=== PATIENT | female | born 1960 | race American Indian/Alaskan Native ===

== ENCOUNTER 2021-06-16 17:13 | Emergency (ER) | payer SELFPAY ==
[2021-06-16] MEDS ORDERED: ALBUTEROL 2.5 MG/3 ML NEBU IH ONE ×5 (17:21→21:05)
--- NOTE | 2021-06-16 17:38 | Event Note ---
ED Screening Note Date of service: 06/16/21 Time: 17:37 ED Screening Note: Patient complains of sudden onset of shortness of breath History of asthma Patient is significantly short of breath with cough States she did receive a Covid vaccine This initial assessment/diagnostic orders/clinical plan/treatment(s) is/are subject to change based on patients health status, clinical progression and re- assessment by fellow clinical providers in the ED. Further treatment and workup at subsequent clinical providers discretion. Patient/guardian urged not to elope from the ED as their condition may be serious if not clinically assessed and managed. Initial orders include: Informed triage nurse to place vitals in chart Triage nurse also ordered albuterol treatment Chest x-ray and labs given severity of shortness of breath
[2021-06-16 19:17] LABS: Hematocrit 42.4 % (30.3-42.9); Hemoglobin 13.9 gm/dl (10.1-14.3); Mean Corpuscular HGB Conc 33 % (30-34); Mean Corpuscular Volume 93 fl (79-97); Platelet Count 209 K/mm3 (140-440); Red Blood Count 4.55 M/mm3 (3.65-5.03)
[2021-06-16 19:22] LABS: Albumin 4.6 g/dL (3.9-5); Calcium 9.6 mg/dL (8.4-10.2)
--- NOTE | 2021-06-16 19:51 | XRay Report ---
CHEST 2 VIEWS INDICATION / CLINICAL INFORMATION: shortness of breath. COMPARISON: None available. FINDINGS: SUPPORT DEVICES: None. HEART / MEDIASTINUM: No significant abnormality. LUNGS / PLEURA: The lungs are mildly hyperinflated. No acute pulmonary or pleural disease noted, kat bryon. No pneumothorax. ADDITIONAL FINDINGS: No significant additional findings. IMPRESSION: 1. Mild hyperinflation of the lungs. No acute pulmonary process noted. Signer Name: Lizzie Pressley MD Signed: 06/16/2021 7:47 PM Workstation Name: [id number]
[2021-06-16] MEDS ORDERED: IPRATROPIUM 0.02% NEBU 2.5 ML IH ONE ×2 (21:03→21:05)
[2021-06-16] MEDS ORDERED: predniSONE 20 MG TAB PO ONE (21:12)
[2021-06-16 21:17] LABS: Giant Platelets Rare; RBC Morphology Normal; Total Cells Counted 100
[2021-06-16] MEDS ORDERED: diphenhydrAMINE 50 MG/ML VIAL IV STA (21:51)
--- NOTE | 2021-06-16 22:37 | Emergency Department Report ---
ED Asthma HPI - General Chief Complaint: Adult Asthma Stated Complaint: ASTHMA Time Seen by Provider: 06/16/21 17:38 Source: patient Mode of arrival: Ambulatory Limitations: No Limitations - History of Present Illness Initial Comments: The exacerbation of asthma of unknown etiology. She is unsure of contact with the coronavirus no diarrhea no hemoptysis no hematemesis hematochezia, no fever, chills, sweats. MD Complaint: "asthma attack", shortness of breath, wheezing -: Gradual Asthma History: history of prior ED visit Severity: moderate, severe Context: recent URI, ran out of meds Associated Symptoms: none, productive cough. denies: hemoptysis, leg edema, syncope - Related Data Previous Rx's Medication Instructions Recorded Last Taken Type Albuterol Mdi (or & Nicu Only) 2 puff IH QID PRN #1 inhalation 06/17/21 Unknown Rx [ProAir HFA Inhaler] Benzonatate [Tessalon Perles] 100 mg PO Q8HR #20 capsule 06/17/21 Unknown Rx Montelukast [Singulair] 10 mg PO QPM #14 tablet 06/17/21 Unknown Rx predniSONE [Deltasone] 50 mg PO QDAY #5 tab 06/17/21 Unknown Rx Allergies Allergy/AdvReac Type Severity Reaction Status Date / Time No Known Allergies Allergy Unverified 06/16/21 17:29 ED Review of Systems ROS: Stated complaint: ASTHMA Other details as noted in HPI Comment: All other systems reviewed and negative ED Past Medical Hx - Past Medical History Previous Medical History?: Yes Hx Asthma: Yes - Medications Home Medications: Home Medications Medication Instructions Recorded Confirmed Last Taken Type Albuterol Mdi (or & Nicu Only) 2 puff IH QID PRN #1 inhalation 06/17/21 Unknown Rx [ProAir HFA Inhaler] Benzonatate [Tessalon Perles] 100 mg PO Q8HR #20 capsule 06/17/21 Unknown Rx Montelukast [Singulair] 10 mg PO QPM #14 tablet 06/17/21 Unknown Rx predniSONE [Deltasone] 50 mg PO QDAY #5 tab 06/17/21 Unknown Rx ED Physical Exam - General Limitations: No Limitations General appearance: alert, in no apparent distress, in distress (Increased work of breathing mild to moderate) - Head Head exam: Present: atraumatic, normocephalic - Eye Eye exam: Present: normal appearance, PERRL - ENT ENT exam: Present: mucous membranes moist - Neck Neck exam: Present: normal inspection - Respiratory Respiratory exam: Present: normal lung sounds bilaterally, wheezes, rhonchi, decreased breath sounds. Absent: respiratory distress, chest wall tenderness, accessory muscle use - Cardiovascular Cardiovascular Exam: Present: regular rate, normal rhythm. Absent: systolic murmur, diastolic murmur, rubs, gallop - GI/Abdominal GI/Abdominal exam: Present: soft, normal bowel sounds - Extremities Exam Extremities exam: Present: normal inspection, normal capillary refill - Back Exam Back exam: Present: normal inspection. Absent: CVA tenderness (R), CVA tenderness (L) - Neurological Exam Neurological exam: Present: alert, oriented X3, CN II-XII intact - Psychiatric Psychiatric exam: Present: normal affect, normal mood - Skin Skin exam: Present: warm, dry, intact, normal color. Absent: rash ED Course Vital Signs 06/16/21 06/16/21 06/17/21 17:36 21:14 00:50 Temperature 98.8 F Pulse Rate 87 86 Pulse Rate [ 88 Bilateral] Respiratory 20 18 Rate Respiratory 20 Rate [Bilateral ] Blood Pressure 174/113 141/96 [Right] O2 Sat by Pulse 98 96 Oximetry ED Medical Decision Making - Lab Data Result diagrams: 06/16/21 18:14 06/16/21 18:14 - Radiology Data Radiology results: report reviewed [address] [address] XRay Report Signed Patient: HOMER GARDUNO MR#: [id number] : 1960 Acct:[id number] Age/Sex: 60 / F ADM Date: 06/16/21 Loc: ED Attending Dr: Ordering Physician: SUJATA FREEMAN Date of Service: 06/16/21 Procedure(s): XR chest routine 2V Accession Number(s): [id number] cc: SUJATA FREEMAN Fluoro Time In Minutes: CHEST 2 VIEWS INDICATION / CLINICAL INFORMATION: shortness of breath. COMPARISON: None available. FINDINGS: SUPPORT DEVICES: None. HEART / MEDIASTINUM: No significant abnormality. LUNGS / PLEURA: The lungs are mildly hyperinflated. No acute pulmonary or pleural disease noted, however. No pneumothorax. ADDITIONAL FINDINGS: No significant additional findings. IMPRESSION: 1. Mild hyperinflation of the lungs. No acute pulmonary process noted. Signer Name: Lizzie Pressley MD Signed: 06/16/2021 7:47 PM Workstation Name: [id number] Transcribed By: Dictated By: Lizzie Pressley MD Electronically Authenticated By: Lizzie Pressley MD Signed Date/Time: 06/16/211946 DD/ 45 TD/TT: - Medical Decision Making No altered mental status, saddle respirations, belly breathing or other signs of impending ventilatory failure. No intubations or recent admissions to the hospital for asthma. Unlikely pneumonia, CHF, COPD, GERD Workup Review include a chest x-ray which was normal she also received steroids and albuterol Therapies: Prednisone 50 mg PO. Albuterol nebulizer Reassessment: Patient improved with albuterol and ipratropium in less than 3 hours. Disposition: Discharge home with return precautions. Advised to follow up with primary care physician within next 24-48 hours. Aside from this acute exacerbation patient has been well controlled on baseline home regimen. Rx short steroid course, albuterol, Singulair, Flovent Critical care attestation.: If time is entered above; I have spent that time in minutes in the direct care of this critically ill patient, excluding procedure time. ED Disposition Clinical Impression: Asthma exacerbation Disposition: 01 HOME / SELF CARE / HOMELESS Is pt being admited?: No Does the pt Need Aspirin: No Condition: Stable Instructions: Asthma, Adult Prescriptions: predniSONE [Deltasone] 50 mg PO QDAY #5 tab Albuterol Mdi (or & Nicu Only) [ProAir HFA Inhaler] 2 puff IH QID PRN #1 inhalation PRN Reason: Shortness Of Breath Montelukast [Singulair] 10 mg PO QPM #14 tablet Benzonatate [Tessalon Perles] 100 mg PO Q8HR #20 capsule Referrals: [facility] [Provider Group] - 3-5 Days
[2021-06-17] MEDS ORDERED: ACETAMINOPEN W/CODEINE 120-12MG ORAL LIQD 5 ML PO STA
[2021-06-17 01:13] VITALS: BP 141/96
== END 2021-06-17 00:50 | disposition home or self-care (01) ==
LOC: ED 17:13
DX: J45.901 Unspecified asthma with (acute) exacerbation (principal); Z79.899 Other long term (current) drug therapy
CPT/HCPCS: 36415; 71046; 80053; 85007; 85025; 94644; 96374; 99284; J1200; J7512